=== PATIENT | male | born 2000 | race Two or more races ===

== ENCOUNTER 2022-02-28 19:52 | Emergency (ER) | payer MEDICAID, OTHER ==
[~2022-02-28] VITALS: Ht 180.3 cm; Wt 76.2 kg
[2022-02-28 19:52] VITALS: BP 150/89
[2022-02-28] MEDS ORDERED: IBUP800T26 PO (22:57)
== END 2022-02-28 23:14 | disposition home or self-care (01) ==
LOC: ER 19:52
DX: S60.221A Contusion of right hand, initial encounter (principal); S00.83XA Contusion of other part of head, initial encounter; M25.522 Pain in left elbow; Y04.2XXA Assault by strike against or bumped into by another person, initial encounter; Y93.89 Activity, other specified; Y92.89 Other specified places as the place of occurrence of the external cause; Y99.8 Other external cause status
CPT/HCPCS: 73130; 73502